=== PATIENT | female | born 1990 | race American Indian/Alaskan Native ===

== ENCOUNTER 2019-06-30 08:23 | Emergency (ER) | payer BC ==
[2019-06-30 08:32] VITALS: BP 113/84
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
== END 2019-06-30 10:02 | disposition home or self-care (01) ==
LOC: ED 08:23
DX: S29.011A Strain of muscle and tendon of front wall of thorax, initial encounter (principal); Z79.1 Long term (current) use of non-steroidal anti-inflammatories (NSAID); Z79.899 Other long term (current) drug therapy; V89.2XXA Person injured in unspecified motor-vehicle accident, traffic, initial encounter; Y93.89 Activity, other specified; Y92.488 Other paved roadways as the place of occurrence of the external cause; Y99.8 Other external cause status
CPT/HCPCS: 99282